=== PATIENT | male | born 1995 ===

== ENCOUNTER 2018-04-16 13:39 | Emergency (ER) | payer SELFPAY ==
[~2018-04-16] VITALS: Ht 170.2 cm; Wt 67.7 kg
[2018-04-16 13:43] VITALS: TEMP 98.8
[2018-04-16 14:37] VITALS: PULSE 98
== END 2018-04-16 14:38 | disposition home or self-care (01) ==
LOC: COL.ER 13:39
DX: M26.601 Right temporomandibular joint disorder, unspecified (principal); F17.210 Nicotine dependence, cigarettes, uncomplicated; F12.90 Cannabis use, unspecified, uncomplicated